=== PATIENT | female | born 1995 | race American Indian/Alaskan Native ===

== ENCOUNTER 2018-02-22 02:44 | Emergency (ER) | payer SELFPAY ==
--- NOTE | 2018-02-22 07:58 | Emergency Department Report ---
[facility] Chief Complaint: Eye Problems Stated Complaint: EYE REDNESS STOMACH PAIN Time Seen by Provider: 02/22/18 07:30 Duration: 3 Days Side: Left Severity: moderate Symptoms: Yes Eye Itching (right eye), Yes Eye Redness (right eye), Yes Purulent Drainage, No Eye Pain, No Mucous Drainage, No Blurred Vision, No Preceding URI, No H/O Allergic Rhinitis, No Contact Lens Use, No Trauma, No Fever, No Headache Other History: This is a 23-year-old female here reporting that she contracted pinkeye from her boyfriend who had a for 5 days. She reports redness and itching without any foreign body sensation to her right eye. Denies any pain in her eye. Denies any blurred vision or decrease in vision. Tetanus vaccines up-to-date. She does not wear contacts. ED Review of Systems ROS: Stated complaint: EYE REDNESS STOMACH PAIN Other details as noted in HPI Constitutional: denies: chills, fever Eyes: eye discharge, other (redness and itching). denies: eye pain, vision change ENT: denies: ear pain, throat pain, dental pain, epistaxis, congestion Respiratory: denies: cough, shortness of breath, SOB with exertion, wheezing Cardiovascular: denies: chest pain, palpitations, edema, syncope Gastrointestinal: denies: nausea, vomiting Musculoskeletal: denies: back pain, arthralgia Skin: denies: rash, lesions Neurological: denies: headache ED Past Medical Hx - Past Medical History Previous Medical History?: Yes Additional medical history: "Kidney problems" - Surgical History Past Surgical History?: Yes Additional Surgical History: "Kidney stent" - Family History Family history: hypertension - Social History Smoking Status: Current Every Day Smoker Substance Use Type: None - Medications Home Medications: Home Medications Medication Instructions Recorded Confirmed Last Taken Type Gentamicin 0.3% Ophth Soln 2 drops OP Q8H 7 Days #1 bottle 02/22/18 Unknown Rx [facility] Exam - Exam General: Vital signs noted. No distress. Alert and acting appropriately. This is a 23-year-old female well-nourished well-developed in no acute distress. Eye Exam: Both Injection, Both EOMI, Both Purulent Discharge, Both Corneal Edema , Neither Chemosis, Neither Abnormal Pupil, Neither Eye Foreign Body, Neither Lid Foreign Body, Neither Mucous Discharge, Neither Fluorescein Uptake, Neither Fluorescein Uptake (slit lamp), Neither Cell/Flare (slit lamp), Neither Photophobia HEENT: No Nasal Congestion, No Pharyngeal Erythema Remainder of HEENT: Normal Lungs: Yes Clear Lung Sounds, Yes Good Air Exchange, No Wheezes, No Stridor, No Cough, No Nasal Flaring, No Retractions, No Use of Accessory Muscles ED Course Vital Signs 02/22/18 02/22/18 03:15 03:18 Temperature 98.6 F 98.6 F Pulse Rate 60 Respiratory 16 Rate Blood Pressure 146/77 [Left] O2 Sat by Pulse 98 Oximetry - Reevaluation(s) Reevaluation #1: 02/22/18 08:14 Patient had no adverse reaction and emergency room Critical care attestation.: If time is entered above; I have spent that time in minutes in the direct care of this critically ill patient, excluding procedure time. ED Disposition Clinical Impression: Conjunctivitis, right eye Qualifiers: Conjunctivitis type: unspecified Qualified Code(s): H10.9 - Unspecified conjunctivitis Disposition: DC- TO HOME OR SELFCARE Is pt being admited?: No Does the pt Need Aspirin: No Condition: Stable Instructions: Conjunctivitis (ED) Additional Instructions: Instill eyedrops as instructed Keep affected areas clean and dry Claims Attorney in 2-3 days Prescriptions: Gentamicin 0.3% Ophth Soln 2 drops OP Q8H 7 Days #1 bottle Referrals: PRIMARY CAREMD [Primary Care Provider] - 2-3 Days EVAN COYLE MD [Staff Physician] - 2-3 Days Forms: Work/School Release Form(ED)
[2018-02-22 08:28] VITALS: BP 140/68
== END 2018-02-22 08:27 | disposition home or self-care (01) ==
LOC: ED 02:44
DX: H10.9 Unspecified conjunctivitis (principal); F17.200 Nicotine dependence, unspecified, uncomplicated
CPT/HCPCS: 99282